=== PATIENT | male | born 1975 | race Two or more races ===

== ENCOUNTER 2025-05-21 13:44 | Inpatient (IN) | payer MEDICAID, OTHER ==
[~2025-05-21] VITALS: Ht 198.1 cm; Wt 75.9 kg
[2025-05-21 14:52] LABS: COVID AG,FIA SOURCE NASAL SWAB
[2025-05-21 14:52] LABS: PLATELET COUNT (AUTO) 177 K/uL (150-450); RED BLOOD CELL COUNT(AUTO) 3.49 MIL/uL (4.50-5.90); RED CELL DISTRIBUTION WIDTH 13.2 % (11.5-14.5); WHITE BLOOD COUNT (AUTO) 7.5 K/uL (4.5-11.0)
[2025-05-21 14:57] LABS: PH,URINE DRUG SCREEN 7.5 (5.0-8.0)
[2025-05-21] MEDS: SODIUM CHLORIDE 0.9% 1,000 ML IV ONE (14:57)
[2025-05-21 14:59] LABS: CALCIUM, TOTAL 8.1 mg/dL (8.8-10.5); CREATININE 0.88 mg/dL (0.60-1.30); GLOMERULAR FILTR. RATE CALC > 60 mL/min (>60); GLUCOSE,RANDOM 102 mg/dL (70-110); SODIUM SERUM 141 mmol/L (136-145); UREA NITROGEN, BLOOD 7 mg/dL (7-18)
[2025-05-21 15:04] LABS: ALCOHOL, URINE DRUG SCREEN POSITIVE (NEGATIVE); AMPHET/METH SCREEN,URINE NEGATIVE (NEGATIVE); BARBITURATE SCREEN, URINE NEGATIVE (NEGATIVE); CANNABINOID SCREEN,URINE NEGATIVE (NEGATIVE); COCAINE SCREEN,URINE NEGATIVE (NEGATIVE); METHADONE SCREEN, URINE NEGATIVE (NEGATIVE)
[2025-05-21 15:09] LABS: ASPARTATE AMINOTRANSFERASE 91.0 U/L (15-37); TOTAL PROTEIN, SERUM 8.2 g/dL (6.4-8.2)
[2025-05-21 15:53] LABS: SARS-COV2 (COVID) ANTIGEN,FIA Negative (Negative)
[2025-05-21] MEDS ORDERED: FLUO-418 PO (16:07)
[2025-05-21] MEDS ORDERED: OMEP20CA12 PO (16:07)
[2025-05-21] MEDS ORDERED: LISI-1024 PO (16:07)
[2025-05-21] MEDS: POTASSIUM CHLORIDE 20 MEQ ER TABLET PO ONE (16:11)
[2025-05-21] MEDS ORDERED: ZOLPIDEM TARTRATE 10 MG TABLET PO PRN (17:00)
[2025-05-21] MEDS ORDERED: DOCUSATE SODIUM 100 MG CAPSULE PO PRN ×2 (21:58→22:00)
[2025-05-21] MEDS ORDERED: ACETAMINOPHEN 325 MG TABLET PO PRN (22:00)
[2025-05-21] MEDS ORDERED: IBUPROFEN 600 MG TABLET PO PRN (22:00)
[2025-05-21] MEDS ORDERED: BENZOCAINE/MENTHOL [CEPACOL] LOZENGE PO PRN (22:00)
[2025-05-21] MEDS ORDERED: BACITRACIN 28 GM OINTMENT TP PRN (22:00)
[2025-05-21] MEDS ORDERED: OMEPRAZOLE 20 MG CAPSULE PO PRN (22:00)
[2025-05-21] MEDS ORDERED: ALBUTEROL SULFATE HFA 90 MCG/PUFF 8 GM INHALER IH PRN (22:00)
[2025-05-21] MEDS ORDERED: PETROLATUM,WHITE 28 GM JELLY TP PRN (22:00)
[2025-05-21] MEDS ORDERED: LOPERAMIDE HCL 2 MG CAPSULE PO PRN (22:00)
[2025-05-21] MEDS ORDERED: MAGNESIUM HYDROXIDE SUSPENSION 30 ML UDCUP PO PRN (22:00)
[2025-05-21] MEDS ORDERED: MAG HYDROX/ALUMINUM HYD/SIMETH ES 30 ML SUSPENSION UDCUP PO PRN (22:00)
[2025-05-21 22:07] VITALS: BP 190/100; PULSE 109; RESP 18; TEMP 98.7; O2SAT 100
[2025-05-21 22:15] VITALS: BP 190/100; PULSE 109; RESP 18; TEMP 98.7; O2SAT 100
[2025-05-21] MEDS: ONDANSETRON 4 MG TABLET PO PRN (22:42)
[2025-05-21 23:10] VITALS: BP 197/101; PULSE 115; RESP 18
[2025-05-21 23:15] VITALS: BP 197/101; PULSE 115; RESP 18; TEMP 98.6; O2SAT 98
[2025-05-22] VITALS (14 sets, daily range): BP systolic 149–189; BP diastolic 86–106; PULSE 77–121; RESP 16–19; TEMP 97.6–98.2; O2SAT 98–100
[2025-05-22 09:37] LABS: CHOL/HDL RATIO 3.5 (4.2-7.3); LDL CHOL (CALC.) 148.0 mg/dL (0-130)
[2025-05-22] MEDS: METOPROLOL TARTRATE 25 MG TABLET PO SCH (10:06)
[2025-05-23 08:31] VITALS: BP 148/93; PULSE 82; RESP 18; TEMP 97.8; O2SAT 100
[2025-05-23 09:56] VITALS: BP 148/93; PULSE 82; RESP 18; TEMP 97.8; O2SAT 100
[2025-05-23] MEDS ORDERED: ROSU10TA98 PO (11:42)
[2025-05-23] MEDS ORDERED: METO25 PO (11:42)
[2025-05-23] MEDS ORDERED: ROSUVASTATIN CALCIUM 10 MG TABLET PO SCH (21:00)
== END 2025-05-23 12:45 | disposition home or self-care (01) | DRG 753 ==
LOC: EMS 13:44 → B2S 21:29
PROVIDERS: ADMIT Psychiatry & Neurology Psychiatry; ATTEND Psychiatry & Neurology Psychiatry
DX: F31.9 Bipolar disorder, unspecified (principal); E11.9 Type 2 diabetes mellitus without complications; R45.851 Suicidal ideations; I10 Essential (primary) hypertension; F10.10 Alcohol abuse, uncomplicated; E87.6 Hypokalemia; F41.9 Anxiety disorder, unspecified; Z20.822 Contact with and (suspected) exposure to COVID-19; G47.00 Insomnia, unspecified; K59.00 Constipation, unspecified; R74.01 Elevation of levels of liver transaminase levels
CPT/HCPCS: 80048; 80061; 80076; 80307; 83036; 84132; 84436; 84439; 85025; 96360; 99285; G0480; J7030; Q0162; 36415-L1; 36415-TC